=== PATIENT | female | born 1965 | race Caucasian/White ===

== ENCOUNTER → 2019-06-18 | Outpatient (CLI) | payer BC ==
--- NOTE | 2019-06-19 02:13 | REP ---
Clinical: Left shoulder pain. Technique: Internal rotation, external rotation, and Y view of the left shoulder. Findings: No acute fracture or dislocation. Subtle cortical irregularity at the acromioclavicular joint and along the inferior margin of the ossified glenoid rim suggest mild degenerative changes. Subacromial space is normal. No periarticular calcifications or loose bodies noted. Impression: Mild arthritic changes. Electronically Signed by Sin Rangel MD 06/19/2019 02:05 A
--- NOTE | 2019-06-19 02:28 | REP ---
Clinical: Pain. Technique: AP, lateral, bilateral oblique views of the left wrist. Findings: Mild degenerative changes include subtle pancarpal sclerosis and cortical irregularities as well as spurring involving the first carpometacarpal joint. Increased sclerosis along the radial surface with subtle cortical irregularity at the radial styloid and radiocarpal joint space narrowing also appreciated. No acute fracture or dislocation. 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 Electronically Signed by Sin Rangel MD 06/19/2019 02:19 A
== END ==
LOC: M WUC 09:57
PROVIDERS: ATTEND Nurse Practitioner Family
DX: M25.512 Pain in left shoulder (principal); M25.532 Pain in left wrist